=== PATIENT | female | born 1985 | race Hispanic/Latino ===

== ENCOUNTER 2017-05-10 19:29 | Emergency (ER) | payer MEDICAID ==
--- NOTE | 2017-05-11 04:40 | Emergency Department Report ---
ED Rash HPI - HPI Chief Complaint: Skin Rash Stated Complaint: RASH Time Seen by Provider: 05/11/17 03:57 Duration: 4 Days Location: Abdomen (painful rash beneath abdominal fold.) Suspected Cause: Unknown Rash Symptoms: Yes Itching (beneath abdominal fold), No Breathing Difficulties, No Choking Sensation, No Wheezing/Dyspnea, No Peeling, No Blistering, No Fever, No Lightheaded, No Malaise, No Myalgias Severity: moderate (3/10) Other History: Patient reports that she has had a red rash under her abdominal fold 2-4 days. She states she went to her doctor and they told her that if he rash. Patient says she needs medication for this. She said that she is having in burning pain to site. Pain is 3 out of 10. Denies any fever or chills. Denies any nausea or vomiting. Pain is localized to rash site. ED Review of Systems ROS: Stated complaint: RASH Other details as noted in HPI Comment: All other systems reviewed and negative Constitutional: no symptoms reported ENT: denies: ear pain, throat pain, congestion Respiratory: no symptoms reported Cardiovascular: denies: chest pain, palpitations, dyspnea on exertion, orthopnea , edema, syncope, paroxysmal nocturnal dyspnea Gastrointestinal: denies: abdominal pain, nausea, vomiting, diarrhea, constipation Musculoskeletal: denies: back pain, joint swelling, arthralgia, myalgia Skin: rash Neurological: denies: headache, numbness, paresthesias, confusion, abnormal gait , vertigo ED Past Medical Hx - Past Medical History Previous Medical History?: Yes Hx Seizures: Yes Hx Psychiatric Treatment: Yes (schizo bipolar) - Surgical History Past Surgical History?: Yes Additional Surgical History: ulcer - Family History Family history: no significant - Social History Smoking Status: Current Every Day Smoker Substance Use Type: None - Medications Home Medications: Home Medications Medication Instructions Recorded Confirmed Last Taken Type Benztropine [Cogentin] 1 mg PO BID #60 tab 12/16/15 Unknown Rx Haloperidol [Haldol] 5 mg PO BID #60 tablet 12/16/15 Unknown Rx Pantoprazole [Protonix TAB] 40 mg PO QDAY #30 tablet 12/16/15 Unknown Rx Fluconazole [Diflucan TAB] 150 mg PO QDAY 2 Days #2 tablet 05/11/17 Unknown Rx Nystatin Cream [Mycostatin Cream] 1 applic TP BID 7 Days #1 tube 05/11/17 Unknown Rx Sulfamethoxazole/Trimethoprim 1 each PO BID 10 Days #20 tablet 05/11/17 Unknown Rx [Bactrim DS TAB] Rash Exam - Exam General: Vital signs noted. No distress. Alert and acting appropriately. This is a 3403 and a well-nourished well-developed in no acute distress. HEENT: No Periorbital Edema, No Conjuctival Injection, No Chemosis, No Perioral Edema, No Tongue Edema, No Uvular Edema, No Compromised Airway, No Drooling Lungs: Yes Good Air Exchange, No Wheezes, No Ronchi, No Stridor, No Cough, No Labored Respirations, No Retractions, No Use of Accessory Muscles, No Other Abnormal Lung Sounds Heart: Yes Regular (S1, S2. Regular rate and rhythm.), No Murmur Skin: Yes Excoriations (abdominal fold appears to be fungal rash with superimposed bacterial infection), Yes Tenderness (abdominal fold.), Yes Erythema (abdominal fold), No Urticarial Rash, No Maculopapular Rash, No Morbilliform rash, No Bulla(e), No Weeping, No Edema, No Encrustations, No Other (area is small odorous.) Other: Positive: Abdomen Normal, Neurologic Normal, Musculoskeletal Normal ED Course Vital Signs 05/10/17 05/10/17 19:31 19:38 Temperature 97.5 F L 97.5 F L Pulse Rate 79 Respiratory 16 16 Rate Blood Pressure 106/66 106/66 O2 Sat by Pulse 97 Oximetry - Reevaluation(s) Reevaluation #1: 05/11/17 05:18 Patient stable throughout ED course. ED Medical Decision Making - Medical Decision Making ED course: PT reports that she's been having in red rash area to abdomen and she 's been seen by a doctor and he told her that it was heat rash. Patient with physical findings for fungal rash to abdominal fold along with mild odor and what appears to be superimposed bacterial infection. Rash is superficial in nature and she does not have any pain with palpation of abdomen. I discussed the patient diagnosis and treatment plan and told her that she'll need to follow up with band booker or management. I instructed her that she needs to keep area clean and dry to avoid getting in further infection. Patient was consented to surgical instruction and discharged home with prescription for Diflucan on 2 days, nystatin cream and bactrim DS Critical care attestation.: If time is entered above; I have spent that time in minutes in the direct care of this critically ill patient, excluding procedure time. ED Disposition Clinical Impression: Fungal infection of skin of abdomen, Cellulitis of abdominal wall Disposition: - TO HOME OR SELFCARE Is pt being admited?: No Does the pt Need Aspirin: No Condition: Stable Instructions: Tinea Corporis (ED), Cellulitis (ED) Additional Instructions: Please keep affected area clean and dry. Take medication as prescribed. Please follow up with band booker as instructed Please follow up with the primary care physician on 05/12/2017. Prescriptions: Fluconazole [Diflucan TAB] 150 mg PO QDAY 2 Days #2 tablet Nystatin Cream [Mycostatin Cream] 1 applic TP BID 7 Days #1 tube Sulfamethoxazole/Trimethoprim [Bactrim DS TAB] 1 each PO BID 10 Days #20 tablet Referrals: [facility] [Outside] - 05/12/17 DAVI ZHENG MD [Staff Physician] - 05/12/17
[2017-05-11 06:16] VITALS: BP 114/72
== END 2017-05-11 06:15 | disposition home or self-care (01) ==
LOC: ED 19:29
DX: L03.311 Cellulitis of abdominal wall (principal); B36.9 Superficial mycosis, unspecified; F17.200 Nicotine dependence, unspecified, uncomplicated

== ENCOUNTER 2017-09-26 14:41 | Emergency (ER) | payer MEDICAID ==
[2017-09-26 15:38] LABS: Basophils % (Auto) 0.6 % (0.0-1.8); Eosinophils # (Auto) 0.1 K/mm3 (0.0-0.4); Eosinophils % (Auto) 1.8 % (0.0-4.3); Hematocrit 39.9 % (30.3-42.9); Lymphocytes # (Auto) 2.9 K/mm3 (1.2-5.4); Lymphocytes % (Auto) 36.9 % (13.4-35.0); Mean Corpuscular HGB Conc 35 % (30-34); Mean Corpuscular Hemoglobin 31 pg (28-32); Mean Corpuscular Volume 89 fl (79-97); Monocytes # (Auto) 0.6 K/mm3 (0.0-0.8); Monocytes % (Auto) 6.9 % (0.0-7.3); Platelet Count 187 K/mm3 (140-440); Red Blood Count 4.51 M/mm3 (3.65-5.03); Red Cell Distribution Width 13.4 % (13.2-15.2)
[2017-09-26 15:49] LABS: BUN/Creatinine Ratio 13; Blood Urea Nitrogen 8 mg/dL (7-17); Calcium 8.4 mg/dL (8.4-10.2); Hemolysis Index 13
[2017-09-26 16:20] LABS: Bilirubin,Urine NEG (Negative); Blood,Urine NEG (Negative); Color,Urine Yellow (Yellow); Mucus,Urine FEW /HPF; Protein,Urine <15 mg/dL mg/dL (Negative); Urobilinogen,Urine < 2.0 mg/dL (<2.0)
[2017-09-26 16:32] LABS: Amphetamine Screen,Urine PRESUMPTIVE NEGATIVE; Benzodiazepines Screen,Urine PRESUMPTIVE NEGATIVE; Cannabinoid Screen,Urine PRESUMPTIVE NEGATIVE; Cocaine Screen,Urine PRESUMPTIVE NEGATIVE; Methadone Screen,Urine PRESUMPTIVE NEGATIVE; Opiate Screen,Urine PRESUMPTIVE NEGATIVE
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
[2017-09-27] MEDS ORDERED: COGENTIN ONE (20:23)
[2017-09-27] MEDS ORDERED: HALDOL ONE (20:23)
[2017-09-27] MEDS ORDERED: HALDOL PO SCH (22:00)
[2017-09-27] MEDS: COGENTIN PO SCH (22:12)
[2017-09-27] MEDS: HALDOL PO SCH (22:13)
[2017-09-28 12:55] VITALS: BP 99/68
[2017-09-28] MEDS: HALDOL PO SCH (13:30)
[2017-09-28] MEDS: COGENTIN PO SCH (13:30)
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
--- NOTE | 2017-09-28 16:50 | Emergency Department Report ---
Blank Doc - Documentation Documentation: I was asked by the psychiatry team to prepare discharge paperwork for this patient. While the patient apparently had presented with some concerns for psychosis, she appears awake and alert and calm and appropriate at this time. The 1013 has been rescinded by the psychiatry team. The patient herself says she is ready to return to the custodial and/or jail house and has no concerns at this time. She gets monthly injections and is due for her next one the beginning of next month. She has a psychiatrist for outpatient follow-up and has been encouraged to do so.
== END 2017-09-28 17:33 | disposition home or self-care (01) ==
LOC: ED 14:41 → EEVIPCON 14:41 → ED 09-28 17:33
DX: F31.9 Bipolar disorder, unspecified (principal); F20.9 Schizophrenia, unspecified; K21.9 Gastro-esophageal reflux disease without esophagitis; F17.200 Nicotine dependence, unspecified, uncomplicated; F12.10 Cannabis abuse, uncomplicated; F15.10 Other stimulant abuse, uncomplicated; F14.10 Cocaine abuse, uncomplicated; Z88.0 Allergy status to penicillin
CPT/HCPCS: 36415; 80048; 80307; 81001; 84703; 85025; 99284; G0480; 80320; 99285

== ENCOUNTER 2018-07-26 19:08 | Emergency (ER) | payer MEDICAID ==
--- NOTE | 2018-07-26 19:48 | Emergency Department Report ---
Blank Doc - Documentation Documentation: This is a 33-year-old female that presents with headache. Stated never had he adache like this. Stated has been taking OTC medicatoins with no refill. Patient is neurologically stable. This initial assessment/diagnostic orders/clinical plan/treatment(s) is/are subject to change based on patient's health status, clinical progression and re- assessment by fellow clinical providers in the ED. Further treatment and workup at subsequent clinical providers discretion. Patient/guardians urged not to elope from the ED as their condition may be serious if not clinically assessed and managed. Initial orders include: 1- Patient sent to [facility] for further evaluation and treatment 2- CT head
--- NOTE | 2018-07-26 22:01 | Cat Scan Report ---
PROCEDURE: CT HEAD/BRAIN WO CON HISTORY: headache FINDINGS: Unenhanced CT of the brain was performed and demonstrates no acute intracranial hemorrhage, extra-axial fluid collection, midline shift or mass effect. The ventricles and basal cisterns are no t effaced. 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 The mastoid air cells and middle ears appear clear. There is a left sphenoid polyp versus mucous rete ntion cyst. There is no evidence of acute sinusitis. IMPRESSION: No acute intracranial hemorrhage This document is electronically signed by Joseph Marte MD., July 26 2018 09:59:54 PM ET
[2018-07-27] MEDS ORDERED: TORADOL IM ONE (01:19)
[2018-07-27] MEDS ORDERED: REGLAN PO ONE (01:19)
[2018-07-27] MEDS ORDERED: BENADRYL PO ONE (01:20)
--- NOTE | 2018-07-27 01:25 | Emergency Department Report ---
ED Headache HPI - General Chief Complaint: Headache Stated Complaint: MED REFILL/HEADACHE Time Seen by Provider: 07/26/18 19:46 - History of Present Illness Initial Comments: Pt is a 33 yo female who presents to the ED with c/o a frontal JIMENEZ that began two days ago. She has associated n/v. The patient denies any photophobia, numbness, weakness, vision disturbance, gait disturbance or any other sx. Pt denies any fall or trauma. The patient states she has been taking tylenol with some relief. The patient states that she had a "benign tumor as a child" but did not have a surgical procedure. She has a hx of seizures, schizophrenia, and bipolar. She states that she does have a PCP that she follows up with. Allergies/Adverse Reactions: Allergies Penicillins Allergy (Verified 05/10/17 19:38) Unknown Home Medications: Ambulatory Orders Benztropine [Cogentin] 1 mg PO BID #60 tab 12/16/15 Haloperidol [Haldol] 5 mg PO BID #60 tablet 12/16/15 Pantoprazole [Protonix TAB] 40 mg PO QDAY #30 tablet 12/16/15 Ibuprofen 800 mg PO TID PRN #30 tablet 12/29/17 Nitrofurantoin Monohyd/M-Cryst [Macrobid 100 mg Capsule] 100 mg PO BID #14 capsule 12/29/17 Polyethylene Glycol 3350 [Miralax 3350] 17 gm PO QDAY PRN #5 packet 12/29/17 ED Review of Systems ROS: Stated complaint: MED REFILL/HEADACHE Other details as noted in HPI Comment: All other systems reviewed and negative ED Past Medical Hx - Past Medical History Previous Medical History?: Yes Hx GERD: Yes Hx Seizures: Yes Hx Psychiatric Treatment: Yes (schizophrenia, bipolar) - Surgical History Past Surgical History?: Yes Additional Surgical History: ulcer, tubal ligation - Social History Smoking Status: Light Tobacco Smoker Substance Use Type: None - Medications Home Medications: Home Medications Medication Instructions Recorded Confirmed Last Taken Type Benztropine [Cogentin] 1 mg PO BID #60 tab 12/16/15 04/23/18 Unknown Rx Haloperidol [Haldol] 5 mg PO BID #60 tablet 12/16/15 04/23/18 Unknown Rx Pantoprazole [Protonix TAB] 40 mg PO QDAY #30 tablet 12/16/15 04/23/18 Unknown Rx Ibuprofen 800 mg PO TID PRN #30 tablet 12/29/17 04/23/18 Unknown Rx Nitrofurantoin Monohyd/M-Cryst 100 mg PO BID #14 capsule 12/29/17 04/23/18 Unknown Rx [Macrobid 100 mg Capsule] Polyethylene Glycol 3350 [Miralax 17 gm PO QDAY PRN #5 packet 12/29/17 04/23/18 Unknown Rx 3350] ED Physical Exam - General Limitations: No Limitations General appearance: alert, in no apparent distress - Head Head exam: Present: atraumatic, normocephalic - Eye Eye exam: Present: normal appearance, PERRL, EOMI - ENT ENT exam: Present: mucous membranes moist - Respiratory Respiratory exam: Present: normal lung sounds bilaterally. Absent: respiratory distress, wheezes, rales, rhonchi, stridor, chest wall tenderness, accessory muscle use, decreased breath sounds, prolonged expiratory - Cardiovascular Cardiovascular Exam: Present: regular rate, normal rhythm, normal heart sounds. Absent: systolic murmur, diastolic murmur, rubs, gallop - Neurological Exam Neurological exam: Present: alert, oriented X3, CN II-XII intact, normal gait, other (normal finger to nose, normal heel to lance, normal rapid alternating movements, strength 5/5 in the BUE/BLE, sensation intact, no neuro deficit). Absent: motor sensory deficit - Psychiatric Psychiatric exam: Present: normal affect, normal mood - Skin Skin exam: Present: warm, dry, intact ED Course Vital Signs 07/26/18 07/26/18 07/27/18 19:16 19:47 01:51 Temperature 97.4 F L 97.4 F L Pulse Rate 95 H 94 H Respiratory 16 18 16 Rate Blood Pressure 104/69 104/69 O2 Sat by Pulse 97 98 Oximetry ED Medical Decision Making - Radiology Data Radiology results: report reviewed cc: DESIRAE PAEZ NP PROCEDURE: CT HEAD/BRAIN WO CON HISTORY: headache FINDINGS: Unenhanced CT of the brain was performed and demonstrates no acute intracranial hemorrhage, extra-axial fluid collection, midline shift or mass effect. The ventricles and basal cisterns are not effaced. 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 The mastoid air cells and middle ears appear clear. There is a left sphenoid polyp versus mucous retention cyst. There is no evidence of acute sinusitis. IMPRESSION: No acute intracranial hemorrhage This document is electronically signed by Michelle Marte MD., July 26 2018 09:59:54 PM ET - Medical Decision Making Pt is a 33 yo female who presents to the ED with c/o a frontal JIMENEZ that began two days ago. She has associated n/v. The patient denies any photophobia, numbness, weakness, vision disturbance, gait disturbance or any other sx. Pt denies any fall or trauma. The patient states she has been taking tylenol with some relief. The patient states that she had a "benign tumor as a child" but did not have a surgical procedure. She has a hx of seizures, schizophrenia, and bipolar. She states that she does have a PCP that she follows up with. CT of the brain shows no acute abnormality. VSS. neuro examination is normal. Pt states JIMENEZ completely resolved s/p medications. Will have pt follow up with neurology due to headaches and pt reported history in the next 2-3 days. will have pt follow up with PCP in the next 2-3 days. Discussed with pt return to the ED for any new or worsening symptoms. - Differential Diagnosis JIMENEZ, migraines, bleed, mass Critical care attestation.: If time is entered above; I have spent that time in minutes in the direct care of this critically ill patient, excluding procedure time. ED Disposition Clinical Impression: Headache Qualifiers: Headache type: unspecified Headache chronicity pattern: acute headache Intractability: not intractable Qualified Code(s): R51 - Headache Disposition: - TO HOME OR SELFCARE Is pt being admited?: No Does the pt Need Aspirin: No Condition: Stable Instructions: Acute Headache (ED) Additional Instructions: please follow up with neurology and primary care doctor in the next 2-3 days. Continue taking tylenol or ibuprofen as needed. Return to the emergency room for any new or worsening symptoms. Referrals: MICHELLE GARCIA MD [Primary Care Provider] - 2-3 Days MARYA CH MD [Staff Physician] - 2-3 Days Time of Disposition: 02:17 Print Language: [place]
[2018-07-27 02:31] VITALS: BP 110/74
== END 2018-07-27 02:30 | disposition home or self-care (01) ==
LOC: ED 19:08
DX: R51 Headache (principal); K21.9 Gastro-esophageal reflux disease without esophagitis; F31.9 Bipolar disorder, unspecified; F20.9 Schizophrenia, unspecified; F17.200 Nicotine dependence, unspecified, uncomplicated
CPT/HCPCS: 70450; 96372; 99283; J1885